=== PATIENT | male | born 1935 | race Caucasian/White ===

== ENCOUNTER → 2016-11-26 | Outpatient (CLI) | payer MEDICARE, BC ==
[~2016-11-26] MED LIST: ALDACTONE25 MG PO; ASPIRIN LO-DOSE81 MG PO; COREG 3.1253.125 MG PO; CRESTOR20 MG PO; DUONEB INH; LASIX20 MG PO; OXYGEN M-15 INH; PLAVIX75 MG PO; SALINE MIST44 ML NOSE; VOLTAREN75 MG PO
[2016-11-26 17:33] LABS: BASOPHIL # 0.1 K/uL (0.0-0.2); BASOPHIL % 0.5 %; EOSINOPHIL # 0.5 K/uL (0.0-0.5); HEMATOCRIT 38.8 % (37.0-53.0); HEMOGLOBIN 12.5 g/dL (11.0-16.0); IMMATURE GRANULOCYTE % 0.2 %; LYMPHOCYTE # 2.1 K/uL (0.8-4.0); LYMPHOCYTE % 21.8 %; MCH 34.5 pg (27.0-34.0); MCHC 32.2 gm/dL (32.0-36.5); MCV 107.2 fl (83.0-98.0); MONOCYTE # 0.8 K/uL (0.0-1.0); MONOCYTE % 7.7 %; MPV 9.4 fl (9.4-12.4); NEUTROPHIL # (ANC) 6.3 K/uL (1.4-9.0); NEUTROPHIL % 64.8 %; NRBC % 0 /100WBC (0-0.00); PLATELET COUNT 298 K/uL (150-450); RBC 3.62 M/uL (3.50-5.50); RDW-CV 14.6 % (11.9-14.6); WBC 9.7 K/uL (4.0-11.0)
[2016-11-26 17:52] LABS: ALBUMIN 3.4 gm/dL (3.5-5.0); ANION GAP 12.6 (10.0-19.0); CALCIUM 8.9 mg/dL (8.5-10.5); CREATININE 1.3 mg/dL (0.6-1.3); POTASSIUM 4.6 mMol/L (3.7-5.1); TOTAL BILIRUBIN 0.5 mg/dL (0.0-1.5); TOTAL PROTEIN 8.8 g/dL (6.0-8.4)
== END | disposition disaster alternative care site (69) ==
LOC: LNHI 17:18
PROVIDERS: Internal Medicine Cardiovascular Disease
DX: I25.10 Atherosclerotic heart disease of native coronary artery without angina pectoris (principal); I25.5 Ischemic cardiomyopathy; I95.9 Hypotension, unspecified; R53.83 Other fatigue

== ENCOUNTER → 2017-03-30 | Outpatient (CLI) | payer MEDICARE, BC | END | disposition disaster alternative care site (69) | LOC: LGSMG 17:13 | DX: R06.02 Shortness of breath (principal) ==

== ENCOUNTER 2017-04-01 09:45 | Inpatient (IN) | payer MEDICARE, BC ==
[~2017-04-01] VITALS: Ht 170.2 cm; Wt 62.6 kg
--- NOTE | ~2017-04-01 | CON ---
PATIENT'S NAME: BENJIE MORA [facility] AGE: 82 Y [address] ROOM: [address] [place], [place] [address] LOCATION: GPCU ADMIT DATE: 04/01/2017 Consultation DISCHARGE DATE: FAMILY PHYSICIAN: Audrey Rodriguez MD ATTENDING PHYSICIAN: Solis Trujillo REFERRING PHYSICIAN: SILVINA SMITH MD ADDITIONAL REQUESTING DOCTOR: Solis Trujillo M.D. HISTORY OF PRESENT ILLNESS: This is an 82-year-old man, who is a patient of mine since 2010. He was admitted to the hospital from Dr. Smith's office because of increasing dyspnea and concern of yubhr-[id number] systolic heart failure. The patient says that he was doing well until approximately the beginning of February when he had a tick bite and subsequently developed a staph infection of the right foot. He was seen by a supervisor correspondence section in [place], and he was prescribed intravenous antibiotics that he received as an outpatient, it was one infusion daily, I assume it was vancomycin but I do not have records. The patient says that after about 2-3 weeks, he noticed that his baseline dyspnea worsened significantly, he could not leave the house, and he needed oxygen at 3 L a minute. He did not notice any chest pains. He was not orthopneic, and he did not develop any lower extremity edema. He is followed by Dr. Smith for idiopathic pulmonary fibrosis, and for this reason, he went to see him yesterday. PAST CARDIAC HISTORY: The patient presented with an anterior wall STEMI on October 15, 2010, and he had successful stenting of the occluded left anterior descending artery. He also had a chronic total occlusion of the right coronary artery, which I could not revascularize. He had about 60% stenosis of the first obtuse marginal. His last stress test was on March 31, 2016. His ejection fraction was 31%, up from 23% previously measured, and he had a fixed defect in the LAD territory without significant ischemia. His last echo on May 31, 2015, documented an ejection fraction of 30% to 35%. The patient has an indwelling cardioverter-defibrillator for primary prevention. He has chronically low blood pressure, so he cannot tolerate angiotensin-converting enzyme inhibitors or receptor blockers. He is on low-dose carvedilol and spironolactone. He has been maintained on chronic dual antiplatelet therapy with aspirin and Plavix because of his presentation. In the nursing database, there is a mention of atrial fibrillation, but I do not remember this being one of his problems, and I could not find any of the old electrocardiograms showing this rhythm. He is also on chronic nonsteroidals for generalized osteoarthritis, although he knows the risk. He has stage 3 chronic kidney disease. Overnight, he was PATIENT'S NAME: BENJIE MORA [facility] AGE: 82 Y [address] ROOM: [address] [place], [place] [address] LOCATION: GPCU ADMIT DATE: 04/01/2017 Consultation DISCHARGE DATE: FAMILY PHYSICIAN: Audrey Rodriguez MD ATTENDING PHYSICIAN: Solis Trujillo given diuretics. His fluid balance overall today is -400. He became significantly hypotensive, and he had to be resuscitated with two 500 mL boluses of normal saline. PAST MEDICAL HISTORY: Includes obstructive sleep apnea. PAST SURGICAL HISTORY: Includes open reduction and internal fixation of the left hip and left knee replacement and right inguinal hernia repair. SOCIAL HISTORY: The patient is and lives with his . He is a never a smoker. FAMILY HISTORY: His father was a smoker, from emphysema; his mother from breast cancer. Maternal grandfather from myocardial infarction at 65. OUTPATIENT MEDICATIONS: 1. Rosuvastatin 20 mg daily. 2. Diclofenac 75 mg daily. 3. Spironolactone 25 mg half a tablet daily. 4. Carvedilol 3.125 mg twice a day. 5. Clopidogrel 75 mg daily. 6. Tamsulosin 0.5 mg daily. 7. Aspirin 81 mg daily. PHYSICAL EXAMINATION: GENERAL: A pleasant elderly man. He was lying comfortably in bed. VITAL SIGNS: Saturation 100% on 3 L. He is 5 feet 7 inches, weighs 84.5 kg. Blood pressure earlier today was 80/52 and after fluids 105/53. Heart rate 62. HEENT: Head: Normocephalic, atraumatic. No xanthelasmas. No jaundice. NECK: Supple. No jugular venous distention. No carotid bruits. CHEST: Diminished breath sounds. Few rales. No wheezes. HEART: Regular first and second heart sounds. No S3. ABDOMEN: Flat, soft, nontender. No masses. EXTREMITIES: Lower extremities, no peripheral edema. IMAGING DATA: Electrocardiogram shows sinus rhythm with some T changes, which is a little worse than his baseline. His proBNP was 2000, troponin I 0.052, CK-MB 1.6. Creatinine 1.5, GFR 44. Procalcitonin negative. Lactate 0.8. WBC 10.2, hemoglobin 11.4, hematocrit 34.3, MCV 104.3, platelets 241. Chest x-ray shows fibrotic changes, worse on the right side; superimposed edema cannot be PATIENT'S NAME: BENJIE MORA [facility] AGE: 82 Y [address] ROOM: [place] [address] LOCATION: GPCU ADMIT DATE: 04/01/2017 Consultation DISCHARGE DATE: FAMILY PHYSICIAN: Audrey Rodriguez MD ATTENDING PHYSICIAN: Solis Trujillo. IMPRESSION: Dyspnea, probably multifactorial. Mild volume overload with the recent intravenous antibiotic therapy could be present, but definitely the patient became very hypotensive with diuresis with only 20 mg of Lasix intravenously, so we are going to try to diurese him very mildly, maybe 400 mL that was negative is enough. I will monitor his renal function. I will plan to do a right and left heart catheterization tomorrow and that will get a measurement of his wedge pressure, pulmonary artery pressure, any significant progression of his coronary artery disease. The patient will have repeat echocardiogram and trending of his cardiac enzymes. Because the patient easily desaturates moving around his bed I will obtain a D dimer and if elevated rule out pulmonary embolism. Thank you for allowing to participate in the care of Mr. Mora. VINAY ELLIS MD PE/smithl /[id number] d: 04/02/17 1003 t: 04/02/17 1716, CONSULTATION REPORT
--- NOTE | ~2017-04-01 | ECHO ---
Transthoracic Echocardiography Report (TTE) Demographics Patient Name BENJIE MONTANA Date of Study 04/02/2017 Patient Number [id number] Visit Number [id number] Date of 1935 Room Number [address] Accession Number [id number] Gender Male Age 82 year(s) Referring Cassandra Stone MD Dialysis Biomed Technician Fatimah Qiu RDCS, Physician RVT Physician Interpreting Juana Smith Data Integrity Consultant Physician A Supervising Ordering Physician Juana Smith MD/MARIA ESTHER Richter MD Nurse Stress Wiping Cloth Cutter Conclusions Summary The estimated left ventricular ejection fraction is 20%. The left ventricle is mildly dilated . Apical akinesis. Diastolic assessment reveals Grade I diastolic dysfunction. Mildly dilated right ventricle. Mildly reduced right ventricular function. Device lead noted in the right ventricle. Mild mitral regurgitation by color Doppler. The aortic valve is mildly sclerotic. There is mild aortic regurgitation by color Doppler. There is mild pulmonary hypertension. The pulmonary pressure (RVSP) is 41 mmHg. Mild tricuspid regurgitation by color Doppler. Ascending aorta is mildly dilated. Procedure Type of Study TTE procedure:2D Echocardiogram. Procedure Date Date: 04/02/2017 Start: 07:32 AM Study Location: Inpatient Portable Technical Quality: Fair Indications:Congestive heart failure. Appropriate Use Criteria: 9 Patient Status: Routine Rhythm: Within normal limits HR: 65 bpm BP: 105/53 mmHg M-Mode/2D Measurements LV Diastolic Dimension: 4.94 cm LV Systolic Dimension: 3.77 cm LV Septum Diastolic: 0.86 cm LV Septum Systolic: 4.69 cm LV PW Diastolic: 0.86 cm AO Root Dimension: 2.5 cm Cardiac Output: 3.8 l/min AV Cusp Separation: 0.9 cm RV Diastolic Dimension: 1.94 cm LA volume: 42 ml IVC Inspiration: 1.18 cm LVOT: 2.2 cm RV Base: 2.9 cm LVOT VTI: 15.4 cm RV Mid: 3.44 cm LV Stroke volume: 58.51 ml TAPSE: 1.93 cm Doppler Measurements AV Peak Velocity: 1.37 m/s MV Peak E-Wave: 0.5 m/s AV Peak Gradient: 7.51 mmHg MV Peak A-Wave: 0.86 m/s AV Mean Gradient: 4 mmHg MV E/A Ratio: 0.59 LVOT Peak Velocity: 0.69 m/s MV P1/2t: 80 msec AV P1/2t: 670.7 msec TR Gradient:37.7 mmHg PV Peak Velocity: 1.13 m/s Estimated RAP:3 mmHg PV Peak Gradient: 5.11 mmHg Estimated RVSP: 41 mmHg Estimated PASP: 40.7 mmHg E' Septal Velocity: 0.04 m/s A' Septal Velocity: 0.08 m/s E' Lateral Velocity: 0.04 m/s A' Lateral Velocity: 0.12 m/s MV E/E' Ratio: 11 Findings Left Ventricle The estimated left ventricular ejection fraction is 25-30%. The left ventricle is mildly dilated . Apical akinesis. Diastolic assessment reveals Grade I diastolic dysfunction. Right Ventricle Mildly dilated right ventricle. Mildly reduced right ventricular function. Device lead noted in the right ventricle. Left Atrium Normal left atrial size. Right Atrium Normal right atrial size. Mitral Valve Mild mitral regurgitation by color Doppler. Aortic Valve The aortic valve is mildly sclerotic. There is mild aortic regurgitation by color Doppler. Tricuspid Valve There is mild pulmonary hypertension. The pulmonary pressure (RVSP) is 41 mmHg. Mild tricuspid regurgitation by color Doppler. Pulmonic Valve Trivial pulmonic valve regurgitation by color Doppler. The pulmonic valve is not well visualized. Pericardial Effusion No evidence of pericardial effusion. Miscellaneous Ascending aorta is mildly dilated. Pleural Effusion No evidence of pleural effusion. Signature dtt: Kirill Arias dtd: 04/02/17 0732 Physician Self Edit
--- NOTE | ~2017-04-01 | DS ---
PATIENT'S NAME: BENJIE MONTANA [facility] AGE: 82 Y [address] ROOM: [address] [place], [place] [address] LOCATION: GPCU ADMIT DATE: 04/01/2017 Discharge Summary DISCHARGE DATE: 04/07/2017 FAMILY PHYSICIAN: Audrey Rodriguez MD ATTENDING PHYSICIAN: Solis Trujillo FINAL DIAGNOSES: 1. Acute on chronic systolic congestive heart failure. 2. Coronary artery disease. 3. Idiopathic pulmonary fibrosis. 4. Acute on chronic hypoxic respiratory failure. 5. Essential hypertension. 6. Acute kidney injury. 7. Adult failure to thrive. PROCEDURE: He had a left heart catheterization with 2 drug-eluting stents to the right coronary done by Dr. Arias. HISTORY OF PRESENT ILLNESS: For details of admission, please see Dr. Juanito Trujillo's history and physical. In short, the patient presented with increased work of breathing. He was initially seen in [place] and then transferred here. He had worsening shortness of breath and increasing oxygen requirements. LABORATORY DATA: On admission, sodium 138, most prior discharge 137; potassium on admission 4.5, discharge 4.7; chloride on admission was 103, discharge 101; CO2 on admission was 29, discharge 29; BUN on admission was 33, discharge 40; creatinine on admission was 1.5, it did slowly decline, and at discharge was 1.1. Albumin on admission was 2.7, discharge 2.4. His liver enzymes were normal throughout the hospital stay. His cholesterol was 90, triglycerides 50, HDL cholesterol 48, LDL cholesterol 32. On admission, initial CK was 61, MB 1.6, troponin 0.052. His proBNP was 2000. His troponins did gradually rise as high as 0.996. Hemoglobin A1c was 6.1. White blood cell count on admission was 10.2, hemoglobin 11.4, hematocrit 34.3, and platelet count 241. His hemoglobin slowly declined. At discharge, it was 9.5. Platelet count on admission was 241, discharge 261. Procalcitonin was less than 0.05 on admit. X-RAY STUDIES: On admission, a chest x-ray did show extensive fibrotic changes. There was some superimposed pulmonary edema, and infiltrate could not be ruled out. CT scan of the thorax done for the shortness of breath showed advanced interstitial fibrosis with honeycomb lung pattern seen diffusely in the right and left lower lobes. There is a ground-glass appearance in the left lung, cardiac enlargement. A V/Q scan was low probability. Chest x-ray on the after heart catheterization did show PATIENT'S NAME: BENJIE MONTANA [facility] AGE: 82 Y [address] ROOM: [place] [address] LOCATION: GPCU ADMIT DATE: 04/01/2017 Discharge Summary DISCHARGE DATE: 04/07/2017 FAMILY PHYSICIAN: Audrey Rodriguez MD ATTENDING PHYSICIAN: Solis Trujillo chronic interstitial changes. Echocardiogram shows ejection fraction to be 20%. He had a left ventricle that was mildly dilated. He had grade 1 diastolic dysfunction. HOSPITAL COURSE: The patient was admitted on to PCU. Dr. Trujillo did see him and placed him on heart failure orders. An echocardiogram was obtained and Dr. Arias was asked to see the patient. Because his BUN and creatinine were elevated, he was given cautious hydration. He did require higher levels of oxygen support. He did experience hypotension after arrival. CT scan of the chest high-resolution was done to evaluate the pulmonary fibrosis. Dr. Pop was asked to see him from a pulmonary standpoint. Dr. Arias did feel that at some point he was going to need to have a heart catheterization for further evaluation. A V/Q was done because the D-dimer returned elevated. The V/Q did show return of low probability. He was given IV Solu-Medrol. He did continue to improve. He was given aggressive pulmonary toilet and was given bronchodilators. It was felt that he would have a heart catheterization on Thursday, the . In the meantime, we continued to work with adjusting his medications, trying to remove fluid. On the day prior to his heart catheterization, his diuretics were held. PT and OT were asked to see him. In his heart catheterization, he did in fact have coronary artery disease that required intervention to the right coronary. He did get drug-eluting stents. Please see Dr. Arias's cath note for full details. The patient was monitored overnight. It was felt that he was stable for discharge and could be discharged to home. DISCHARGE INSTRUCTIONS: 1. Follow up in Pulmonary Clinic on April 21 at [address] Arias on April 20 at [address] Rodriguez on April 10 at 4:15. At that time, he needs to have a renal panel. 4. He is to follow a 2-g sodium diet. 5. He is to continue to wear his oxygen. Pulmonary Service did work to get the paperwork complete. MEDICATIONS: 1. Crestor 20 mg daily. 2. Diclofenac 75 mg daily. 3. Spironolactone 12.5 mg at bedtime. 4. Carvedilol 3.125 mg twice daily. 5. Clopidogrel 25 mg daily. 6. Aspirin 81 mg daily. 7. Nose spray 1 to 2 drops in his nose b.i.d. twice a day. 8. Oxygen at 3 L continuous. 9. Furosemide 20 mg daily. 10. Ipratropium/albuterol inhaled four times daily. PATIENT'S NAME: BENJIE MONTANA [facility] AGE: 82 Y [address] ROOM: [place] [address] LOCATION: GPCU ADMIT DATE: 04/01/2017 Discharge Summary DISCHARGE DATE: 04/07/2017 FAMILY PHYSICIAN: Audrey Rodriguez MD ATTENDING PHYSICIAN: Solis Trujillo The family was given a script for pulmonary rehab. They would make arrangements for this in [place]. I did speak with Dr. Rodriguez by phone. COLIN PITTS MD LAW/modl /[id number] CC: MD Audrey Lucero MD Anirban Ghosh, MD d: 04/08/17 0237 t: 04/15/17 1115, DISCHARGE SUMMARY
--- NOTE | ~2017-04-01 | HP ---
PATIENT'S NAME: BENJIE MONTANA [facility] AGE: 82 Y [address] ROOM: [address] [place], [place] [address] [facility] ADMIT DATE: 04/01/2017 History & Physical DISCHARGE DATE: FAMILY PHYSICIAN: Audrey Rodriguez MD ATTENDING PHYSICIAN: Solis Trujillo DATE OF SERVICE: CHIEF COMPLAINT: Acute on chronic hypoxic respiratory failure. HISTORY OF PRESENTING ILLNESS: This is an 82-year-old white male with a history of idiopathic pulmonary fibrosis and chronic systolic congestive heart failure, who was sent to [facility] from [place] with increasing shortness of breath for the last several weeks. He reports that he has had progressive weakness and lethargy, but developing only slowly for a much longer period of time, but feels that his condition has worsened over the last 2 weeks. Prior to that, he was able to go out and check house without oxygen. Since then, he has been wearing oxygen at 2 to 3 L during the day and night. He denies chest pain. He has had only minimal congestion, no significant cough. He gets extremely short of breath with exertion and improves when he is sitting still or lying down. He denies fevers, chills, or sweats. He denies headaches, dizziness, or lightheadedness. His appetite has been extremely poor, but he has not had any problems with chewing or swallowing. No abdominal pain. He stools normally and voids without any difficulties. He denies numbness or tingling in his extremities, but is generally weak. ALLERGIES: NO KNOWN DRUG ALLERGIES. PAST MEDICAL HISTORY: 1. Coronary artery disease. 2. Chronic systolic congestive heart failure. Most recent ejection fraction was calculated at 31% by Lexiscan. 3. Chronic hypoxic respiratory failure. 4. Idiopathic pulmonary fibrosis. 5. Osteoarthritis, generalized. 6. Obstructive sleep apnea. CURRENT MEDICATIONS: Aspirin 81 mg p.o. daily, carvedilol 3.125 p.o. b.i.d., Voltaren 75 mg p.o. daily, Nitrostat p.r.n., Edison p.r.n., rosuvastatin 20 mg p.o. at bedtime, and spironolactone 25 mg p.o. daily. PATIENT'S NAME: BENJIE MONTANA [facility] AGE: 82 Y [address] ROOM: [address] [place], [place] [address] [facility] ADMIT DATE: 04/01/2017 History & Physical DISCHARGE DATE: FAMILY PHYSICIAN: Audrey Rodriguez MD ATTENDING PHYSICIAN: Solis Trujillo FAMILY HISTORY: Significant for breast cancer in his mother. Father had emphysema. SOCIAL HISTORY: He is and lives in [place]. He is a lifelong nonsmoker. No significant history of alcohol use. REVIEW OF SYSTEMS: As per HPI. All other organ systems reviewed and are negative. OBJECTIVE: VITAL SIGNS: Temperature. 97.8, pulse 77, respirations 22, blood pressure 103/63, and weight is 64.5 kilos. GENERAL: He is frail, mildly ill-appearing, visibly dyspneic, lying in the bed, in no acute distress. SKIN: Supple, pale, warm, and dry. No obvious rashes. HEENT: Otherwise, normocephalic. Sclerae nonicteric. Pupils equal, round, and reactive to light and accommodation. Extraocular movements appear intact. Nasal turbinates normal in appearance. Oropharynx clear. Mucous membranes are pink and moist. NECK: Supple. No masses or adenopathy. No thyromegaly. No JVD. No carotid bruits. HEART: Regular with occasional extrasystoles. There is a grade 1 to 2/6 systolic ejection murmur. LUNGS: Coarse, but good air movement bilaterally. There are crackles at the bases, which do not clear with deep inspiration. No significant wheezes. ABDOMEN: Soft, flat, and nontender. Bowel sounds present. No mass or hepatosplenomegaly. : Not done. RECTAL: Not done. EXTREMITIES: Display cachexia. No significant clubbing, cyanosis, or edema. NEUROLOGIC: No focal deficits. LABORATORY AND X-RAY DATA: From the Pulmonary Clinic two days ago, CBC showed a white blood cell count minimally elevated at 11.8, hemoglobin was 12.7, hematocrit 39.1, and platelets 363. Chemistries showed a BUN and creatinine of 32 and 1.47 respectively, sodium and potassium 141 and 4.3, chloride 103, and CO2 of 29.4. AST/ALT 34 and 17 respectively, bilirubin is 0.4. C-reactive protein was abnormal at 6.4. Sedimentation rate elevated at 77. Chest x-ray shows limited inspiration, chronic fibrotic-appearing changes; worse on the right side with concern for developing edema. ASSESSMENT AND PLAN: PATIENT'S NAME: BENJIE MONTANA [facility] AGE: 82 Y [address] ROOM: [address] [place], [place] [address] [facility] ADMIT DATE: 04/01/2017 History & Physical DISCHARGE DATE: FAMILY PHYSICIAN: Audrey Rodriguez MD ATTENDING PHYSICIAN: Solis Trujillo 1. Acute on chronic hypoxic respiratory failure. Suspect multiple factors contributing. I am concerned about acute systolic congestive heart failure. We will admit to inpatient care and provide supportive cares and clinical monitoring. I placed him on the heart failure pathway (see below). We will encourage good pulmonary hygiene and wean the oxygen, as he is physically able. 2. Acute on chronic systolic congestive heart failure. Difficult to assess. His BNP was elevated at around 2000. I placed him on heart failure pathway as above. We will diurese gently with Lasix 20 mg IV b.i.d. and see how he responds. We will also request echocardiography, as this has not been performed recently and consultation by Dr. Arias. 3. Idiopathic pulmonary fibrosis. We will await evaluation by Pulmonology. He may benefit from steroids. Encouraged good pulmonary hygiene as above. 4. Coronary artery disease. Clinically asymptomatic and stable. Continue with medical management, including aspirin therapy, statin therapy, and beta-zeus therapy. 5. Osteoarthritis, generalized. I would like to eliminate nonsteroidal antiinflammatory drug therapy given his history of congestive heart failure and coronary artery disease. 6. Essential hypertension. Appears to be adequately controlled. We will monitor the trend. 7. Acute kidney injury. He appears to be a little total body volume overloaded. We will hold off on IV fluids for now and see how he responds to diuresis. 8. Adult failure to thrive. His clinical condition has been gradually declining and he has had some significant weight loss, but we did not delineate that. Consider SSRI therapy. 9. Deep venous thrombosis prophylaxis. We will use low-dose Lovenox while he is inpatient. MD JOSELIN RUST/modl /[id number] D: [id number] T: [id number] HISTORY & PHYSICAL
--- NOTE | ~2017-04-01 | CATH ---
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 Pulmonology thinks patient is not a candidate for CABG. Procedure Description The patient was brought to the diagnostic cardiac catheterization-EP laboratory in the fasting, non-sedated state. Informed consent was obtained in the written and verbal form after the risks and benefits were explained. The patient had no further questions and agreed to proceed. The planned puncture-incision site(s) were shaved and prepped with ChloraPrep and draped in the usual sterile manner. Conscious sedation, supplemental oxygen, and pain control medications were delivered by a registered nurse under physician guidance. Surface ECG rhythm, blood pressure measurement, and pulse oximetry were monitored throughout the procedure. Arterial access. The access site was infiltrated with lidocaine. The vessel was entered with the Seldinger technique. A sheath was advanced into the vessel and used for catheter placement. Venous access. The access site was infiltrated with 2% lidocaine. The vessel was entered with the Seldinger technique. A sheath was advanced into the vessel and used for catheter placement. Right heart catheterization. A Quincy Iveth catheter was successfully advanced to the right atrium, right ventricle, pulmonary artery, and pulmonary artery wedge position under fluoroscopic guidance. Resting hemodynamics were obtained. Measurements included pressures, arterial and venous oxygen saturation samples, and cardiac output. The Quincy was removed without difficulty. Selective right coronary angiography. A catheter was advanced into the right coronary vessel ostium under fluoroscopic guidance. Contrast was injected by hand. Images were obtained in multiple projections. Left heart catheterization. A catheter was advanced across the aortic valve to the left ventricle under fluoroscopic guidance. Resting hemodynamics were obtained. Selective left coronary angiography. A catheter was advanced into the left coronary vessel ostium under Fluoroscopic guidance. Contrast was injected by hand. Images were obtained in multiple projections. Arterial and Venous hemostasis was achieved. The patient was transferred to a regular nursing floor via cart accompanied by a nurse. The patient left the laboratory in stable condition. Diagnostic Cath Status: Urgent Interventional Cath Status: Urgent Procedure Procedure Type Diagnostic procedure:Angiography:, Right and Left Heart Cath, Coronary Angios PCI procedure:PTCA:, OM, Attempted Indications: NSTEMI. The procedure was explained in detail to the patient. Risks, complications and alternative treatments were reviewed. Written consent was obtained. Medications Reviewed with Patient prior to Procedure. Angiographic Findings Dominance: Right Cardiac Arteries and Lesion Findings LMCA: Normal (0% Stenosis). LAD: Normal (0% Stenosis).Patent stentThere is a previous stent on Prox LAD Proximal subsection showing wide patency. LCx: Lesion on 1st Ob Disha: Proximal subsection.90% stenosis reduced to 90%. Pre procedure SALMA II flow was noted. Post Procedure SALMA II flow was present. The guidewire cross was successful.The lesion was diagnosed as a moderate risk lesion.Culprit lesion. Treatment results:Interventional treatment was a failure. Devices used - Whisper Wire .014 x 190. Number of passes: 1. - DOC Wire. Number of passes: 1. - Whisper Wire .014 x 300. Number of passes: 1. - Whisper Wire .014 x 300. Number of passes: 1. RCA: Lesion on Prox RCA: Proximal subsection.70% stenosis . Lesion on Mid RCA: Mid subsection.100% stenosis .Chronic total occlusion. Coronary Tree Procedure Data Procedure Date Date: 04/03/2017Start: 09:39 AMEnd: 10:53 AM Entry Locations - Retrograde Percutaneous access was performed through the Right Radial artery (Primary location). A 6 Fr sheath was inserted. Hemostasis was successfully obtained using Mechanical Compression. Closure Comments: R Band with 16mL's of air. - Antegrade Percutaneous access was performed through the Right Brachial vein. A 6 Fr sheath was inserted. Hemostasis was successfully obtained using Manual Compression. Closure Comments: 10min of manual pressures held by Remedios ALVES(R). Procedure Medications Order and Administration + + +--------+ + !Time !Medication !Dosage !Route ! + + +--------+ + 04/03/2017 !PAE Radial Cocktail: Heparin 5000 units,! !I.A. ! !09:43 AM !Nitroglycerin 200mcg, Verapamil 3 mg ! ! ! ! !(ACC_3) ! ! ! + + +--------+ + 04/03/2017 !Fentanyl !25 mcg !I.V. ! !09:57 AM ! ! ! ! + + +--------+ + 04/03/2017 !Heparin (ACC_3) !2000 !I.V. bolus! !10:05 AM ! !units ! ! + + +--------+ + 04/03/2017 !Fentanyl !25 mcg !I.V. ! !10:21 AM ! ! ! ! + + +--------+ + !04/03/2017 !Fentanyl !25 mcg !I.V. ! !10:42 AM ! ! ! ! + + +--------+ + Devices Used - A6 Fr. Balloon Wedge Catheterwas used for:Right heart cath. - A6 Fr. BS JR 4 Diag. Catheterwas used for:Right coronary angiography. - A6 Fr. BS JL 3.5 Diag. Catheterwas used for:Left coronary angiography. - A6 Fr. XBLAD 3.5 Guide Catheterwas used for:OM Intervention. Contrast Material - Isovue 250518 ml Fluoroscopy Time: Diagnostic: 24:12 minutes. Total: 24:12 minutes. Fluoroscopy Dose: Diagnostic: 1345 mGy. Total: 1345 mGy. Estimated Blood Loss: 20 ml. Additional [facility] PCI Information PCI Indication:PCI for high risk Non-STEMI or unstable angina. Medical History Performed Procedures and Imaging Results - No [facility] stress or imaging studies were performed. Allergies - No known allergies. Risk Factors The patient risk factors include:prior PCI on 10/15/2010;hypertension, last creatinine: 1.3 mg/dl, creatinine clearance: 41.29 ml/min, dyslipidemia, prior heart failure and prior [place] . Admission Data Admission Date: 04/01/2017 Admission Time: 03:02 PM Admit Source: Emergency department Insurance Payors: Medicare. Admission Medications + +------+------+ + + + + !Medication !Dosage!Times !Last !Last !Administered !Comments ! ! ! !Per !Delivery !Delivery ! ! ! ! ! !Day !Date !Time ! ! ! + +------+------+ + + + + !Aspirin ! ! ! ! !Yes ! ! !(any) ! ! ! ! ! ! ! + +------+------+ + + + + !Beta Carlee! ! ! ! !Yes ! ! !(any) ! ! ! ! ! ! ! + +------+------+ + + + + !Clopidogrel ! ! ! ! !Yes ! ! + +------+------+ + + + + !Statin (any)! ! ! ! !Yes ! ! + +------+------+ + + + + Clinical Evaluation Leading to Procedure - The patient's CAD presentation was assessed as: Non-STEMI. - The patient's anginal syndrome during the past two weeks was assessed as: Class IV according to the [place] Cardiovascular Society Classification System (CCS). Anti-anginal medications were prescribed during the past two weeks. The medication is: Beta Blockers. [facility] . Ejection Fraction - Method: Echocardiography. EF%: 20. Snapshots Hemodynamics Condition: Rest Estimated: Heart Rate: 92 bpm Oxygen Saturation +--------+-----+----+ +----+ + !Location!pCO2 !pO2 !% Saturation !Hgb !O2 Content ! +--------+-----+----+ +----+ + !RA ! ! !56 !11.7! ! +--------+-----+----+ +----+ + !PA ! ! !57.6 !11.7! ! +--------+-----+----+ +----+ + !FA ! ! !97.1 !11.7! ! +--------+-----+----+ +----+ + Pressures (mmHg) +-----+ + !Site !Pressure ! +-----+ + !RA !4/-1 (-1) ! +-----+ + !RV !33/-3 ,3 ! +-----+ + !PCW !16/15 (13) ! +-----+ + !PA !30/6 (15) ! +-----+ + !AO !95/60 (77) ! +-----+ + !AO !90/53 (69) ! +-----+ + !LV !95/0 ,3 ! +-----+ + !LV !92/0 ,1 ! +-----+ + !AO !98/53 (75) ! +-----+ + !LV !92/0 ,2 ! +-----+ + Valve Gradients and Areas + +---------+---------+---------+ +---------+ + !Valve !Peak !Mean !Area !Index !Flow !Source ! + +---------+---------+---------+ +---------+ + !Aortic !0 !0 ! ! ! ! ! + +---------+---------+---------+ +---------+ + !Aortic !0 !0 ! ! ! ! ! + +---------+---------+---------+ +---------+ + Shunts Oxygen Values O2 Capacity 159.12 Discharge Data Discharge Date: 04/07/2017 Hospital Status: Inpatient Signatures dtt: Kirill Arias dtd: 04/03/17 0939 Physician Self Edit
--- NOTE | ~2017-04-01 | CATH ---
Cardiac Interventional Report Demographics Patient Name RUBÉN Morton Gender Male Date of 1935 Age 82 year(s) Patient Number [id number] Date of Study 04/06/2017 Visit Number [id number] Room Number G6[address] [place] [id number] Ht 167.64 cm Wt 64.41 kg Referring Efstratiou Primary Physician Physician Luis Richter MD Performing Efstratiou Secondary Physician Physician Luis Richter MD Diagnostic Assisting Physician Physician Interventional Efstratiou Physician Book Author Physician Luis Richter MD Findings and Conclusions Interventional Findings and Conclusion Circ iFR non ischemic. OM 1 does not appear severe today and supplies territory also saved by OM2 and OM3. Successful PCI to RCA WELT RANDER with 2 SHEILA. Interventional Recommendations Continue ASA and Plavix indefinitely. Procedure Description The patient was brought to the diagnostic cardiac catheterization-EP laboratory in the fasting, non-sedated state. Informed consent was obtained in the written and verbal form after the risks and benefits were explained. The patient had no further questions and agreed to proceed. The planned puncture-incision site(s) were shaved and prepped with ChloraPrep and draped in the usual sterile manner. Conscious sedation, supplemental oxygen, and pain control medications were delivered by a registered nurse under physician guidance. Surface ECG rhythm, blood pressure measurement, and pulse oximetry were monitored throughout the procedure. Arterial access. The access site was infiltrated with lidocaine. The vessel was entered with the Seldinger technique. A sheath was advanced into the vessel and used for catheter placement. iFR measurement was performed. The vessel was entered with a guiding catheter. The iFR wire was normalized and then advanced across the lesion. Measurements were taken. Angioplasty and Stent Placement: A guiding catheter was used to intubate the vessel. A 0.14 wire was then used to cross the lesion. A balloon catheter was placed across the lesion and inflated. The balloon catheter was then removed. A Drug Eluting Stent was placed and inflated. Post placement angiograms were performed. Arterial artery hemostasis was achieved. The patient was transferred to a regular nursing floor via cart accompanied by a nurse. The patient left the laboratory in stable condition. Interventional Cath Status: Urgent Procedure Procedure Type PCI procedure:Drug Eluting Coronary Stent:, RCA, Additional Imaging:, FFR/iFR:, Initial Vessel Indications: Cardiac catheterization indicating PCI. The procedure was explained in detail to the patient. Risks, complications and alternative treatments were reviewed. Written consent was obtained. Medications Reviewed with Patient prior to Procedure. Angiographic Findings Dominance: Right Cardiac Arteries and Lesion Findings There is a previous stent on Prox LAD Proximal subsection. LCx: Circ iFR non ischemic Lesion on Mid CX: Mid subsection. Pre procedure SALMA III flow was noted. Post Procedure SALMA III flow was present. The guidewire cross was successful. FFR + + + + !FFR !Stage/Medication !Dosage ! + + + + !0.95 ! ! ! + + + + Devices used - ProtoSharerata Pressure Wire. Number of passes: 1. RCA: Lesion on Prox RCA: Proximal subsection.100% stenosis 38 mm length reduced to 0%. Pre procedure SALMA 0 flow was noted. Post Procedure SALMA III flow was present. The guidewire cross was successful.The lesion was diagnosed as a high risk lesion.Culprit lesion.Chronic total occlusion. FFR + + + + !FFR !Stage/Medication !Dosage ! + + + + Devices used - Whisper Wire .014 x 300. Number of passes: 1. - Emerge OTW Push Balloon 1.2 x 8. 4 inflation(s) to a max pressure of: 18 tonya. - [place] Slam Wire 0.14 x 300. Number of passes: 1. - Emerge Balloon 1.5 x 12. 1 inflation(s) to a max pressure of: 14 tonya. - Whisper Extra Support Wire .014 x 300. Number of passes: 1. - Emerge Balloon 1.5 x 8. 4 inflation(s) to a max pressure of: 16 tonya. - Emerge Balloon 2.0 x 12. 2 inflation(s) to a max pressure of: 18 tonya. - NC Emerge Balloon 2.5 x 12. 4 inflation(s) to a max pressure of: 22 tonya. - NC Emerge Balloon 3.0 x 15. 2 inflation(s) to a max pressure of: 22 tonya. - Promus Premier 3.0 x 38 Stent. 1 inflation(s) to a max pressure of: 12 tonya. - NC Emerge Balloon 3.5 x 12. 7 inflation(s) to a max pressure of: 22 tonya. Lesion on Prox RCA: Distal subsection.100% stenosis 8 mm length reduced to 0%. Pre procedure SALMA 0 flow was noted. Post Procedure SALMA III flow was present. The guidewire cross was successful.The lesion was diagnosed as a high risk lesion.Chronic total occlusion. Devices used - Promus Premier 2.75 x 8 Stent. 2 inflation(s) to a max pressure of: 20 tonya. Coronary Tree Procedure Data Procedure Date Date: 04/06/2017Start: 11:24 AMEnd: 01:09 PM Entry Locations - Percutaneous access was performed through the Right Femoral artery (Primary location). A 6 Fr sheath was inserted. Hemostasis was successfully obtained using Angio-Seal STS PLUS (St. Hammad). Closure Comments: Angioseal deployed by Dr Jean Procedure Medications Order and Administration + + + + + !Time !Medication !Dosage !Route ! + + + + + !04/06/2017 11:26 AM !Heparin (ACC_3) !09302 units !I.V. bolus ! + + + + + !04/06/2017 11:27 AM !Fentanyl !25 mcg !I.V. ! + + + + + !04/06/2017 11:27 AM !Versed !1 mg !I.V. ! + + + + + !04/06/2017 11:33 AM !0.9% NaCl !10 ml/hr !I.V. drip ! + + + + + !04/06/2017 12:12 PM !0.9% NaCl !100 ml/hr !I.V. drip ! + + + + + !04/06/2017 12:13 PM !0.9% NaCl !300 ml !I.V. bolus ! + + + + + !04/06/2017 12:31 PM !Nitroglycerin !200 mcg !I.C. ! + + + + + !04/06/2017 12:46 PM !Heparin (ACC_3) !1000 units !I.V. bolus ! + + + + + Devices Used - A6 Fr. EBU 3.75 Guide Catheterwas used for:OM Intervention. - A6 Fr. JR4 SH Guide Catheterwas used for:RCA Intervention. - A6 Fr. Guidlinerwas used for:RCA Intervention. Contrast Material - Isovue 39847 ml Fluoroscopy Time: Diagnostic: 40:12 minutes. Total: 40:12 minutes. Fluoroscopy Dose: Diagnostic: 996 mGy. Total: 996 mGy. Estimated Blood Loss: 30 ml. Additional [facility] PCI Information PCI Indication:Staged PCI. Medical History Performed Procedures and Imaging Results - No [facility] stress or imaging studies were performed. Allergies - No known allergies. Risk Factors The patient risk factors include:prior PCI on 10/15/2010;hypertension, last creatinine: 1.3 mg/dl, creatinine clearance: 41.29 ml/min, dyslipidemia, prior heart failure and prior [place] . Admission Data Admission Date: 04/01/2017 Admission Time: 03:02 PM Admit Source: Emergency department Insurance Payors: Medicare. Admission Medications + +------+------+ + + + + !Medication !Dosage!Times !Last !Last !Administered !Comments ! ! ! !Per !Delivery !Delivery ! ! ! ! ! !Day !Date !Time ! ! ! + +------+------+ + + + + !Aspirin ! ! ! ! !Yes ! ! !(any) ! ! ! ! ! ! ! + +------+------+ + + + + !Beta Carlee! ! ! ! !Yes ! ! !(any) ! ! ! ! ! ! ! + +------+------+ + + + + !Clopidogrel ! ! ! ! !Yes ! ! + +------+------+ + + + + !Statin (any)! ! ! ! !Yes ! ! + +------+------+ + + + + Clinical Evaluation Leading to Procedure - The patient's CAD presentation was assessed as: Non-STEMI. - The patient's anginal syndrome during the past two weeks was assessed as: Class IV according to the [place] Cardiovascular Society Classification System (CCS). Anti-anginal medications were prescribed during the past two weeks. The medication is: Beta Blockers. [facility] . Ejection Fraction - Method: Echocardiography. EF%: 20. Snapshots Hemodynamics Condition: Rest O2 Consumption: Estimated: 199.52Heart Rate: 73 bpm Pressures (mmHg) +-----+ + !Site !Pressure ! +-----+ + !AO !111/61 (82) ! +-----+ + Shunts Oxygen Values O2 Capacity 136 O2 Consumption 199.52 Discharge Data Discharge Date: 04/07/2017 Hospital Status: Inpatient Signatures dtt: Kirill Arias dtd: 04/06/17 1124 Physician Self Edit
--- NOTE | ~2017-04-01 | CON ---
PATIENT'S NAME: [facility] AGE: 82 Y [address] ROOM: [place] [address] LOCATION: GPCU ADMIT DATE: 04/01/2017 Consultation DISCHARGE DATE: 04/07/2017 FAMILY PHYSICIAN: Audrey Rodriguez MD ATTENDING PHYSICIAN: Solis Trujillo DATE OF CONSULTATION: 04/01/2017 REFERRING PHYSICIAN: Humberto Pop MD INDICATION: IPF exacerbation. HISTORY OF PRESENT ILLNESS: This is an 82-year-old male with history of IPF, chronic respiratory failure, CAD, and systolic heart failure, who was just seen in the clinic 2 days ago for increased dyspnea on exertion. This has been going on for the last 3 weeks or more. Right before that, he had been treated for severe tick bite, which developed into cellulitis. He was treated with antibiotics and fluids, but since then has had increased shortness of breath and went from room air during the day to 3 to 4 L nasal cannula during the day. Recent chest x-ray suggested increased pulmonary edema versus progression of IPF. ProBNP was elevated to 1855 and creatinine was up to 1.47. Procalcitonin and hemoglobin were normal. Eosinophils were elevated and ESR was 77. Currently, he is resting comfortably but still short of breath. He has a rare cough with white sputum, which is at baseline. He denies any wheezing, hemoptysis, or edema. There has been no nausea, vomiting, or fever, chills. Appetite has been poor, and he reports weight loss. PAST MEDICAL HISTORY: Includes IPF, chronic respiratory failure, CAD, and chronic systolic heart failure. ALLERGIES: SEE MAR. MEDICATIONS: See MAR. FAMILY HISTORY: He denies any family history of lung disease. SOCIAL HISTORY: Never smoker. REVIEW OF SYSTEMS: PATIENT'S NAME: [facility]IE [facility] AGE: 82 Y [address] ROOM: [place] [address] LOCATION: GPCU ADMIT DATE: 04/01/2017 Consultation DISCHARGE DATE: 04/07/2017 FAMILY PHYSICIAN: Audrey Rodriguez MD ATTENDING PHYSICIAN: Solis Trujillo All review of systems were negative except for what is noted in the HPI. PHYSICAL EXAMINATION: VITAL SIGNS: Blood pressure 103/63, pulse 77, respirations 22, and temperature 97.8. He is 95% on 4 L. GENERAL: This is an 82-year-old, frail appearing male, who is alert and oriented x3, appears in no acute distress at the time of exam. HEENT: Head: Normocephalic and atraumatic. Eyes, clear. NECK: Supple. No adenopathy. No carotid bruits or JVD. LUNGS: Bilateral crackles, right greater than left. HEART: Regular rate and rhythm with a 2/6 systolic murmur. ABDOMEN: Soft, nontender, nondistended. Bowel sounds x4. EXTREMITIES: No cyanosis, clubbing, or edema. No diagnostic data available currently. ASSESSMENT: 1. Qplbm-ky-qbfighr respiratory failure, most likely due to pulmonary edema. Elevated ESR and increased blood eosinophils make acute eosinophilic pneumonia or acute exacerbation of idiopathic pulmonary fibrosis, other potential causes. 2. Idiopathic pulmonary fibrosis with recent signs of progression, question acute exacerbation. 3. Acute kidney injury, new, question cause. 4. Systolic heart failure exacerbation with pulmonary edema. PLAN: Would recommend trial of IV diuretics first with close monitoring of renal function. If there is no improvement in the next 48 to 72 hours, would attempt steroids. Thank you for the consult and opportunity to participate in the patient's care. LOUIE THEODORE APRN FOR MD PAUL OCONNOR/nahomy /[id number] d: 04/28/17 0958 t: 05/12/17 1710, CONSULTATION REPORT
--- NOTE | 2017-04-01 16:21 | NUR ---
Patient is 82 yo male admitted this afternoon for exacerbation of CHF. 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 states he is starting to get some depression because all he can do is sit by the window and watch. He states he cannot go out and help any more. Patient recently had a tick bite on his right little toe. he states he got infection in it and had to be on IV antibiotics for 10 days. states he is needing more help at home to get around although the oxygen has helped him a lot. IV is started by YANELI Acosta with 20 ga on 1st attempt w/good blood return noted. patient deana well. no erythema or edema is noted at site. Education is given as documented. patient and deny questions. pneumatics are on bilat calves. pt deana well. Call light is within reach, denies needs at this time. Report is given to YANELI Acosta.
[2017-04-01] MEDS ORDERED: CRESTOR20 MG PO (16:24)
[2017-04-01] MEDS ORDERED: COREG 3.1253.125 MG PO (16:25)
[2017-04-01] MEDS ORDERED: ALDACTONE25 MG PO (16:25)
[2017-04-01] MEDS ORDERED: VOLTAREN75 MG PO (16:25)
[2017-04-01] MEDS ORDERED: PLAVIX75 MG PO (16:26)
[2017-04-01] MEDS ORDERED: ASPIRIN LO-DOSE81 MG PO (16:26)
[2017-04-01] MEDS ORDERED: SALINE MIST44 ML NOSE (16:28)
[2017-04-01] MEDS ORDERED: OXYGEN M-15 INH (16:28)
[2017-04-01 18:10] LABS: BASOPHIL # 0.1 K/uL (0.0-0.2); BASOPHIL % 0.6 %; EOSINOPHIL # 0.8 K/uL (0.0-0.5); HEMATOCRIT 34.3 % (33.0-50.0); HEMOGLOBIN 11.4 g/dL (11.0-16.0); IMMATURE GRANULOCYTE % 0.3 %; LYMPHOCYTE # 1.6 K/uL (0.8-4.0); LYMPHOCYTE % 15.3 %; MCH 34.7 pg (27.0-34.0); MCHC 33.2 gm/dL (32.0-36.5); MCV 104.3 fl (83.0-98.0); MONOCYTE # 1.1 K/uL (0.0-1.0); MONOCYTE % 10.5 %; MPV 8.8 fl (9.4-12.4); NEUTROPHIL # (ANC) 6.7 K/uL (1.4-9.0); NEUTROPHIL % 65.3 %; NRBC % 0 /100WBC (0-0.00); PLATELET COUNT 241 K/uL (150-450); RBC 3.29 M/uL (3.50-5.50); RDW-CV 13.7 % (11.9-14.6); WBC 10.2 K/uL (4.0-11.0)
[2017-04-01 18:24] LABS: INR - (THERAPEUTIC) 1.08 (0.92-1.07); PROTIME 11.3 SECONDS (9.8-11.4)
[2017-04-01 18:30] LABS: ALBUMIN 2.7 gm/dL (3.5-5.0); ANION GAP 10.5 (10.0-19.0); CALCIUM 8.2 mg/dL (8.5-10.5); CREATININE 1.5 mg/dL (0.6-1.3); MAGNESIUM 1.8 mg/dL (1.8-2.6); POTASSIUM 4.5 mMol/L (3.7-5.1); TOTAL BILIRUBIN 0.4 mg/dL (0.0-1.5); TOTAL PROTEIN 7.9 g/dL (6.0-8.4)
--- NOTE | 2017-04-01 18:50 | NUR ---
Significant Event: A/O X3. UP WITH 1 ASSIST. O2 @ 4L NC, LUNG SOUNDS COARSE T/O. SHORTNESS OF BREATH ON EXERTION. SL TO LEFT WRIST. DENIES PAIN. VSS. @ BEDSIDE. Follow up:
--- NOTE | 2017-04-02 04:32 | NUR ---
A&OX3. CALM/COOPERATIVE WITH CARES. MI'KMAQ. IV TO L) WRIST/HAND AREA INFUSING IV 500ML BOLUS. ORDER TO GIVE ADDITIONAL 500ML BOLUS R/T BPS. 70/50S WITH MAPS IN 50'S. MD NOTIFIED. ASYMPTOMATIC WITH BPS. OTHER VSS. DENIES ANY PAIN. WEANED TO 2.5L OF 02.
[2017-04-02 04:58] LABS: ANION GAP 10.3 (10.0-19.0); CALCIUM 7.6 mg/dL (8.5-10.5); CREATININE 1.4 mg/dL (0.6-1.3); POTASSIUM 4.3 mMol/L (3.7-5.1)
--- NOTE | 2017-04-02 12:44 | NUR ---
1201 Came by to see Ben but he was not in his room. Will stop back by and see again later to talk with him about dismissal plans. CM to continue to follow and assist.
[2017-04-02 15:47] LABS: CPK 57 IU/L (35-332)
--- NOTE | 2017-04-02 16:16 | NUR ---
Introduced self and CM role to Ben. Ben tells me that he lives at home with his in [place] and plans to return there when he is able to do so. PCP is . Ben manages his own medications with some assistance from his . He doesn't use a cane or FWW to get around with at home, but states he has them if he needs them. Ben denies the need for any HHC or additional DME when he goes home. He thinks that he will be here over the weekend and then maybe home early next week. His son and daughter in law live close to his house and they check in on him almost daily. Both he and his still drive so someone from his family will come and pick him up when he is dismissed. No other questions, needs or concerns. Plan home. I left my name and contact information on his whiteboard incase any other questions come up. CM to continue to follow and assist.
--- NOTE | 2017-04-02 16:35 | NUR ---
Significant Event: VSS AND 2-3L/NC. AFEBRILE. DENIES PAIN. DDIMER ELEVATED, VQ SCAN DONE AND WAS (-) PROBABILITY FOR PE. SBPS 80S-90S THIS AM AND WAS DIZZY AFTER AMBULATING TO THE BR; AM DOSE OF LASIX HELD PER . SATS WERE AT 80% ON 3L/NC AFTER AMBULATING TO THE BATHROOM AND BACK TO BED, GETS VERY SOB AND EASILY HYPOXIC WITH ANY ACTIVITY, SATS RECOVER BACK TO LOW 90S AT REST ON 3L. ECHO DONE AND EF WAS 20%. PLAN FOR HEART CATH TMRW WITH DR. ELLIS; PREP DONE. VOIDS WITH ADEQUATE UOP. IV SOLUMEDROL STARTED PER DR. SMITH FOR THE LUNG FIBROSIS. REPOSITIONED Q2H. Follow up: CONTINUE PLAN OF CARE.
[2017-04-02 20:53] LABS: CPK 67 IU/L (35-332)
[2017-04-03 03:55] LABS: HEMATOCRIT 35.2 % (33.0-50.0); HEMOGLOBIN 11.7 g/dL (11.0-16.0); MCH 34.2 pg (27.0-34.0); MCHC 33.2 gm/dL (32.0-36.5); MCV 102.9 fl (83.0-98.0); MPV 8.8 fl (9.4-12.4); PLATELET COUNT 264 K/uL (150-450); RBC 3.42 M/uL (3.50-5.50); RDW-CV 13.5 % (11.9-14.6); WBC 10.3 K/uL (4.0-11.0)
--- NOTE | 2017-04-03 04:02 | NUR ---
A&OX3. VSS ON 3L N/C. HAD URINARY RETENTION AT BEGINNING ON SHIFT, MD NOTIFIED. BLADDER SCAN 582ML OF URINE. ROMANO PLACE. 1,000ML CLEAR YELLOW URINE OUTPUT. PATIENT C/O OF COUGHING UP LOTS OF MUCOUS IN THE NIGHT AND MAKES IT HARD TO BREATHE WHEN HE COUGHS SO HARD. GETS SOB WITH ACTIVITY. PLAN FOR HEART CATH TODAY WITH DR. Carolina BUT PATIENT STATES THIS AM "I DON'T KNOW IF I SHOULD GET HEART CATH BECAUSE OF EVERYTHING THAT HAS HAPPENED TONIGHT." REFERRING TO URINE RETENTION AND COUGHING SPELLS. CALM AND COOPERATIVE WITH CARES. IV L) WRIST INFUSING NS AT 75ML/HR.
[2017-04-03 04:06] LABS: ALBUMIN 2.8 gm/dL (3.5-5.0); ANION GAP 14.1 (10.0-19.0); CALCIUM 8.5 mg/dL (8.5-10.5); CREATININE 1.3 mg/dL (0.6-1.3); PHOSPHORUS 3.8 mg/dL (2.5-4.9); POTASSIUM 4.1 mMol/L (3.7-5.1)
[2017-04-03 04:48] LABS: ABSOLUTE NEUTROPHIL CT (ANC) 9.6 K/uL (1.4-9.0); LYMPHOCYTE # 0.6 K/uL (0.8-4.0); LYMPHOCYTE % 6 %; MONOCYTE # 0.1 K/uL (0.0-1.0); SEGMENTED NEUTROPHIL # 9.6 K/uL (1.4-9.0); SEGMENTED NEUTROPHIL % 93 %
--- NOTE | 2017-04-04 04:47 | NUR ---
Significant events: Pt A/Ox3. VSS. No complaints of pain. SBP 90-110's. On 2-4L/NC. R) wrist covered with coban, eraser tip size blood on dressing. Shin in place, 250mL out. Cooperative with cares. Follow up: heart cath on thursday.
[2017-04-04 05:18] LABS: ANION GAP 11.2 (10.0-19.0); CALCIUM 8.2 mg/dL (8.5-10.5); CREATININE 1.4 mg/dL (0.6-1.3); POTASSIUM 4.2 mMol/L (3.7-5.1)
[2017-04-04 12:22] LABS: ALBUMIN 2.7 gm/dL (3.5-5.0); ALK PHOS 51 IU/L (33-138); ALT 15 IU/L (12-78); AST 28 IU/L (10-40); TOTAL PROTEIN 7.6 g/dL (6.0-8.4)
[2017-04-04 12:23] LABS: TOTAL BILIRUBIN 0.3 mg/dL (0.0-1.5)
[2017-04-05 04:45] LABS: ALBUMIN 2.8 gm/dL (3.5-5.0); ANION GAP 11.4 (10.0-19.0); CALCIUM 8.2 mg/dL (8.5-10.5); CREATININE 1.3 mg/dL (0.6-1.3); PHOSPHORUS 2.7 mg/dL (2.5-4.9); POTASSIUM 4.4 mMol/L (3.7-5.1)
--- NOTE | 2017-04-05 05:03 | NUR ---
A/O. HR 80-90s. SBP 100-140s. AFEBRILE. 2L NC. SOB WITH ACTIVITY. ROMANO INTACT 250ML UOP. DENIES PAIN. NO BM. 1A WALKER. PLAN FOR HEART CATH THURSDAY.
--- NOTE | 2017-04-05 17:34 | NUR ---
PLAN FOR HEART CATH TOMORROW AM AT 1000. PERMITS ARE SIGNED AND PATIENT IS AWARE OF TIME. GOOD DAY TODAY.
[2017-04-06 04:07] LABS: BASOPHIL % 0.1 %; HEMATOCRIT 30.2 % (33.0-50.0); IMMATURE GRANULOCYTE # 0.1 K/uL (0.0-0.3); IMMATURE GRANULOCYTE % 0.7 %; LYMPHOCYTE % 7.8 %; MCH 34.2 pg (27.0-34.0); MCHC 33.1 gm/dL (32.0-36.5); MCV 103.4 fl (83.0-98.0); MONOCYTE # 1.3 K/uL (0.0-1.0); MONOCYTE % 10.4 %; MPV 8.8 fl (9.4-12.4); NEUTROPHIL # (ANC) 10.2 K/uL (1.4-9.0); NRBC % 0 /100WBC (0-0.00); PLATELET COUNT 268 K/uL (150-450); RBC 2.92 M/uL (3.50-5.50); RDW-CV 13.8 % (11.9-14.6); WBC 12.6 K/uL (4.0-11.0)
[2017-04-06 04:19] LABS: INR - (THERAPEUTIC) 1.07 (0.92-1.07); PROTIME 11.2 SECONDS (9.8-11.4); PTT 23 SECONDS (25-32)
[2017-04-06 04:23] LABS: ALBUMIN 2.6 gm/dL (3.5-5.0); ANION GAP 11.6 (10.0-19.0); CALCIUM 8.4 mg/dL (8.5-10.5); CREATININE 1.1 mg/dL (0.6-1.3); POTASSIUM 4.6 mMol/L (3.7-5.1); TOTAL BILIRUBIN 0.3 mg/dL (0.0-1.5); TOTAL PROTEIN 7.1 g/dL (6.0-8.4)
--- NOTE | 2017-04-06 05:23 | NUR ---
A/O. HR 80-90s. SBP 100s. 3L O2. AFEBRILE. DENIES PAIN. ROMANO INTACT 550 UOP. NPO SINCE MIDNIGHT FOR RE HEART CATH TODAY.
--- NOTE | 2017-04-06 11:50 | NUR ---
1025 Reviewed Destiney' chart, it appears that he is going down for a re-heart cath today. In his orders it also apppears that PT/OT have been ordered when he gets back to his room. Ben tells me that he still plans on going home when he is ready to dismiss. Denies HHC upon dismissal. If the re-heart cath goes well today, then nursing thinks that he might be able to return home as soon as tomorrow. CM to continue to follow and assist. Plan home with .
--- NOTE | 2017-04-06 13:04 | NUR ---
A-CONSULT RECEIVED TO ADDRESS WT LOSS ISSUE RD INITIAL ASSESSMENT COMPLETED ON 04/02; VISITED W/PT AT THAT TIME AND STARTED JOANNE. ENSURE QD AT LUNCH, PER HOME ROUTINE. PO INTAKE SINCE ADMIT AND PRIOR TO NPO STATUS FOR HEART CATH TODAY, HAS BEEN 75-100%. WTS: 04/01 AND 04/02 (BED SCALE WTS) BOTH DAYS 64.50 KG. 04/05 (STANDING SCALE WT)-62.3 KG 04/06 (STANDING SCALE WT)- 62.6 KG PT HAS BEEN RECEIVING LASIX INJECTIONS THROUGH OUT ADMIT. SUSPECT WT LOSS IN PART DUE TO DIFFERENCE OF SCALES AND FLUID CHANGES. LABS: NA 137, K+ 4.6, GLU 131, BUN 42, GLOVE PRESSER 1.1, ALB 2.6 MEDS: PEPCID, LASIX DIET RX: NPO EST NUTR NEEDS: [id number] KCALS AND 65-78 GM PROTEIN D-AT NUTRITION RISK W/UNINTENDED WT LOSS R/T INADEQUATE ORAL INTAKE AEB 8% WT LOSS, NFPE FINDINGS. I-RESUME JOANNE. ENSURE AT LUNCH WHEN DIET RX RESUMED M/E-GOAL: PO INTAKE >/=75% FOR DURATION OF ADMIT 1)F/U PO INTAKE, SUPPLEMENT, WT, AND POC IN 3-5 DAYS 2)ASSIST NEEDED
--- NOTE | 2017-04-06 17:31 | NUR ---
Significant Event: A/O x3, coopertive with cares. VSS, SBPs 90-120s, HRs 70s, oxygen at 3 liters. No c/o pain. Heart cath today. Site to R) groin, soft, non-tender. Dressing C/D/I. Shin patent with 1825 of yellow urine out this shift. Up with assist of 1; bedrest if done et may ambulate. Follow up: possible d/c tomorrow
[2017-04-07 02:21] LABS: HEMATOCRIT 28.7 % (33.0-50.0); HEMOGLOBIN 9.5 g/dL (11.0-16.0); IMMATURE GRANULOCYTE # 0.1 K/uL (0.0-0.3); IMMATURE GRANULOCYTE % 0.8 %; LYMPHOCYTE # 0.7 K/uL (0.8-4.0); LYMPHOCYTE % 6.6 %; MCH 34.8 pg (27.0-34.0); MCHC 33.1 gm/dL (32.0-36.5); MCV 105.1 fl (83.0-98.0); MONOCYTE # 0.7 K/uL (0.0-1.0); MONOCYTE % 7.1 %; NEUTROPHIL # (ANC) 8.9 K/uL (1.4-9.0); NEUTROPHIL % 85.5 %; NRBC % 0 /100WBC (0-0.00); PLATELET COUNT 261 K/uL (150-450); RBC 2.73 M/uL (3.50-5.50); WBC 10.4 K/uL (4.0-11.0)
[2017-04-07 03:19] LABS: ALBUMIN 2.4 gm/dL (3.5-5.0); ANION GAP 11.7 (10.0-19.0); CREATININE 1.1 mg/dL (0.6-1.3); POTASSIUM 4.7 mMol/L (3.7-5.1); TOTAL BILIRUBIN 0.4 mg/dL (0.0-1.5); TOTAL PROTEIN 6.7 g/dL (6.0-8.4)
--- NOTE | 2017-04-07 04:14 | NUR ---
Significant Event: A/O x3. Afebrile. Denies pain. VSS on 3L. SBP 99-100. HR 70-80s. Paced rhythm. Rt groin site c/d/i. Shin with 375 uop. NS @ 100 for 1500 ml. LS clear/dim. Follow up: Possible discharge today.
[2017-04-07] MEDS ORDERED: LASIX20 MG PO (14:04)
[2017-04-07] MEDS ORDERED: DUONEB INH (14:05)
--- NOTE | 2017-04-07 15:35 | NUR ---
D: PATIENT ALERT AND ORIENTED X3. DRESSING TO R) GROIN. CSM ASSESSMENTS WNL TO R) LOWER EXTREMITY. AMBULATES TO BATHROOM AND UP TO CHAIR WITH SBA. O2 AT 3L/NC, SATS 90-95%. ROMANO REMOVED THIS AM, PATIENT VOIDING WITHOUT DIFFICULTY. DENIES PAIN WHEN ASKED. DISCHARGE INSTRUCTIONS REVIEWED WITH PATIENT, AND SON, VERBALIZES UNDERSTANDING. PATIENT DISMISSED TO HOME, ACCOMPANIED BY AND SON. ASSISTED TO VEHICLE VIA W/C, O2 AT 3L/NC, AND NURSE ASSISTANCE.
== END 2017-04-07 15:35 | disposition disaster alternative care site (69) | DRG 246 ==
LOC: GPCU 15:02
PROVIDERS: Family Medicine; Internal Medicine Cardiovascular Disease; Internal Medicine Critical Care Medicine; Internal Medicine Pulmonary Disease; Nurse Practitioner Family; ADMIT Family Medicine
DX: I13.0 Hypertensive heart and chronic kidney disease with heart failure and stage 1 through stage 4 chronic kidney disease, or unspecified chronic kidney disease (principal); I50.23 Acute on chronic systolic (congestive) heart failure; J96.21 Acute and chronic respiratory failure with hypoxia; N17.9 Acute kidney failure, unspecified; I42.9 Cardiomyopathy, unspecified; N18.3 Chronic kidney disease, stage 3 (moderate); I25.10 Atherosclerotic heart disease of native coronary artery without angina pectoris; J84.112 Idiopathic pulmonary fibrosis; M15.9 Polyosteoarthritis, unspecified; R62.7 Adult failure to thrive; R63.4 Abnormal weight loss; Z68.22 Body mass index [BMI] 22.0-22.9, adult; J44.9 Chronic obstructive pulmonary disease, unspecified
CPT/HCPCS: C1725; C1760; C1769; C1874; C1887; C1894; C9600; J1644; J1650; J1940; J2250; J2920; J3010; J7030; J7040

== ENCOUNTER → 2017-04-20 | Outpatient (CLI) | payer MEDICARE, BC | LOC: LNHI 16:39 | DX: I50.22 Chronic systolic (congestive) heart failure (principal) ==